=== PATIENT | male | born 1985 | race Two or more races ===

== ENCOUNTER 2020-01-10 15:30 | Outpatient (CLI) | payer BC | END 2020-01-10 23:59 | disposition home or self-care (01) | LOC: MSC 15:30 | PROVIDERS: ATTEND Internal Medicine | DX: R20.0 Anesthesia of skin (principal); K21.9 Gastro-esophageal reflux disease without esophagitis; L91.8 Other hypertrophic disorders of the skin; R03.0 Elevated blood-pressure reading, without diagnosis of hypertension; E78.5 Hyperlipidemia, unspecified ==

== ENCOUNTER 2020-03-17 11:07 | Outpatient (CLI) | payer BC | END 2020-03-17 23:59 | disposition home or self-care (01) | LOC: MSC 11:07 | PROVIDERS: ATTEND Internal Medicine | DX: S99.921A Unspecified injury of right foot, initial encounter (principal); W01.198A Fall on same level from slipping, tripping and stumbling with subsequent striking against other object, initial encounter; Y93.9 Activity, unspecified; Y92.9 Unspecified place or not applicable; Y99.9 Unspecified external cause status; R03.0 Elevated blood-pressure reading, without diagnosis of hypertension; E78.5 Hyperlipidemia, unspecified; K21.9 Gastro-esophageal reflux disease without esophagitis; R20.0 Anesthesia of skin; L91.8 Other hypertrophic disorders of the skin; R07.9 Chest pain, unspecified; R53.81 Other malaise ==

== ENCOUNTER → 2020-09-03 | Outpatient (CLI) | payer BC | END | disposition home or self-care (01) | LOC: MSC 10:15 | PROVIDERS: ATTEND Internal Medicine | DX: S99.921D Unspecified injury of right foot, subsequent encounter (principal); W22.8XXD Striking against or struck by other objects, subsequent encounter; K21.9 Gastro-esophageal reflux disease without esophagitis; H93.19 Tinnitus, unspecified ear; E78.5 Hyperlipidemia, unspecified; R20.0 Anesthesia of skin; L91.8 Other hypertrophic disorders of the skin; I10 Essential (primary) hypertension ==

== ENCOUNTER 2020-11-12 08:49 | Outpatient (CLI) | payer BC | END 2020-11-12 23:59 | disposition home or self-care (01) | LOC: MSC 08:49 | PROVIDERS: ATTEND Internal Medicine | DX: H93.19 Tinnitus, unspecified ear (principal); S99.921D Unspecified injury of right foot, subsequent encounter; M54.9 Dorsalgia, unspecified; W22.8XXD Striking against or struck by other objects, subsequent encounter; K21.9 Gastro-esophageal reflux disease without esophagitis; E78.5 Hyperlipidemia, unspecified; R20.0 Anesthesia of skin; L91.9 Hypertrophic disorder of the skin, unspecified; Z79.899 Other long term (current) drug therapy ==